=== PATIENT | female | born 1985 | race Caucasian/White ===

== ENCOUNTER 2021-04-29 18:27 | Emergency (ER) | payer SELFPAY ==
[2021-04-29 18:47] VITALS: BP 120/75; PULSE 76; TEMP 97; BMI 26.9
[2021-04-29 20:58] LABS: BASO % 0.4 % (0-2.0); EOS % 0.4 % (0-4.5); HEMATOCRIT 36.6 % (32.4-45.2); HEMOGLOBIN 12.4 GM/dL (10.7-15.3); LYMPH % 15.6 % (8-40); MCH 29.4 pg (25.7-33.7); MCHC 33.9 g/dl (32.0-36.0); MEAN CELL VOLUME 86.6 fl (80-96); MEAN PLT VOLUME 9.5 fl (7.5-11.1); MONO % 4.8 % (3.8-10.2); NEUT % 78.8 % (42.8-82.8); PLATELET COUNT 172 10^3/uL (134-434); RBC 4.22 M/mm3 (3.60-5.2); WHITE BLOOD COUNT 12.3 K/mm3 (4.0-10.0)
[2021-04-29 21:02] LABS: HCG,QUALITATIVE URINE Positive
[2021-04-29 21:06] LABS: EPI CELLS 4 /uL (0-25.1); HYALINE CASTS 1 /uL (0-3.1); PH,URINE 5.5 (5.0-8.0); URINE APPEARANCE TURBID; URINE BACTERIA 185 /uL (0-1359); URINE BILIRUBIN NEGATIVE (NEGATIVE); URINE COLOR YELLOW; URINE GLUCOSE (UA) NEGATIVE (NEGATIVE); URINE KETONE NEGATIVE (NEGATIVE); URINE LEUK ESTERASE 3+ (NEGATIVE); URINE NITRITE NEGATIVE (NEGATIVE); URINE PROTEIN 2+ (NEGATIVE); URINE RBC 1693 /uL (0-23.9); URINE UROBILINOGEN 0.2 mg/dL (0.2-1.0); URINE WBC 3994 /uL (0-25.8)
[2021-04-29 21:18] LABS: ALBUMIN 4.5 g/dl (3.4-5.0); BLOOD UREA NITROGEN 9.6 mg/dL (7-18)
[2021-04-29 21:21] LABS: CREATININE 0.8 mg/dL (0.55-1.3)
[2021-04-29 21:23] LABS: BILIRUBIN,TOTAL 0.2 mg/dL (0.2-1); TOT PROT 7.8 g/dl (6.4-8.2)
[2021-04-29] MEDS ORDERED: CEFTRIAXONE 1,000 MG in DEXTROSE 5%-WATER - 50 ML IVPB ONE (22:23)
[2021-04-29] MEDS ORDERED: CEFTRIAXONE 1 GM/50 ML BAG ONE (22:31)
[2021-04-29] MEDS ORDERED: ACETAMINOPHEN 325 MG TABLET (FP) ONE (22:39)
[2021-04-29] MEDS ORDERED: ACETAMINOPHEN 325 MG TABLET (FP) PO ONE (22:40)
== END 2021-04-29 23:03 | disposition home or self-care (01) ==
LOC: JER 18:27
DX: O46.91 Antepartum hemorrhage, unspecified, first trimester (principal); O23.01 Infections of kidney in pregnancy, first trimester; O23.41 Unspecified infection of urinary tract in pregnancy, first trimester; Z3A.01 Less than 8 weeks gestation of pregnancy
CPT/HCPCS: 36415; 76817-TC; 80053; 81003; 84702; 84703; 85025; 86850; 86900; 86901; 99284-25

== ENCOUNTER 2021-05-21 16:56 | Emergency (ER) | payer OTHER ==
[2021-05-21 17:10] VITALS: BP 122/80; PULSE 72; TEMP 98.3; BMI 26.9
[2021-05-21 18:23] LABS: BASO % 0.6 % (0-2.0); EOS % 0.8 % (0-4.5); HEMATOCRIT 34.5 % (32.4-45.2); HEMOGLOBIN 11.9 GM/dL (10.7-15.3); LYMPH % 25.8 % (8-40); MCH 29.7 pg (25.7-33.7); MCHC 34.4 g/dl (32.0-36.0); MEAN CELL VOLUME 86.5 fl (80-96); MEAN PLT VOLUME 10.2 fl (7.5-11.1); MONO % 7.5 % (3.8-10.2); NEUT % 65.3 % (42.8-82.8); PLATELET COUNT 176 10^3/uL (134-434); RBC 3.99 M/mm3 (3.60-5.2); RDW 14.4 % (11.6-15.6); WHITE BLOOD COUNT 9.2 K/mm3 (4.0-10.0)
[2021-05-21 18:33] LABS: CALCIUM 9.4 mg/dL (8.5-10.1)
[2021-05-21 18:36] LABS: CREATININE 0.9 mg/dL (0.55-1.3)
[2021-05-21 18:47] LABS: EPI CELLS 21 /uL (0-25.1); HYALINE CASTS 0 /uL (0-3.1); PH,URINE 6.5 (5.0-8.0); URINE APPEARANCE CLEAR; URINE BACTERIA 414 /uL (0-1359); URINE BILIRUBIN NEGATIVE (NEGATIVE); URINE COLOR YELLOW; URINE GLUCOSE (UA) NEGATIVE (NEGATIVE); URINE KETONE NEGATIVE (NEGATIVE); URINE LEUK ESTERASE 2+ (NEGATIVE); URINE NITRITE NEGATIVE (NEGATIVE); URINE PROTEIN NEGATIVE (NEGATIVE); URINE RBC 13 /uL (0-23.9); URINE UROBILINOGEN 0.2 mg/dL (0.2-1.0); URINE WBC 135 /uL (0-25.8)
== END 2021-05-21 19:40 | disposition home or self-care (01) ==
LOC: JER 16:56
DX: O20.9 Hemorrhage in early pregnancy, unspecified (principal); O23.41 Unspecified infection of urinary tract in pregnancy, first trimester; Z3A.08 8 weeks gestation of pregnancy
CPT/HCPCS: 36415; 76801-TC; 80048; 81003; 84702; 85025; 86850; 86900; 86901; 87086; 99284-25

== ENCOUNTER 2021-05-24 19:06 | Emergency (ER) | payer OTHER ==
[2021-05-24 19:37] VITALS: BP 105/69; PULSE 72; TEMP 98.7; BMI 26.4
== END 2021-05-24 23:07 | disposition home or self-care (01) ==
LOC: JER 19:06
DX: O20.9 Hemorrhage in early pregnancy, unspecified (principal); Z3A.08 8 weeks gestation of pregnancy
CPT/HCPCS: 36415; 76801-TC; 84702; 99284-25

== ENCOUNTER 2021-06-06 09:43 | Emergency (ER) | payer OTHER ==
[2021-06-06 10:00] VITALS: TEMP 98.3; BMI 26.9
[2021-06-06 11:09] LABS: EPI CELLS 1 /uL (0-25.1); HYALINE CASTS 5 /uL (0-3.1); URINE APPEARANCE TURBID; URINE BILIRUBIN 2+ (NEGATIVE); URINE COLOR RED; URINE GLUCOSE (UA) NEGATIVE (NEGATIVE); URINE KETONE NEGATIVE (NEGATIVE); URINE LEUK ESTERASE 2+ (NEGATIVE); URINE NITRITE POSITIVE (NEGATIVE); URINE PROTEIN 2+ (NEGATIVE); URINE RBC 7547 /uL (0-23.9); URINE UROBILINOGEN 0.2 mg/dL (0.2-1.0); URINE WBC 2 /uL (0-25.8)
[2021-06-06] MEDS ORDERED: NITROFURANTOIN MACROCRYSTAL 50 MG CAPSULE (FP) PO ONE (11:15)
[2021-06-06] MEDS ORDERED: NITROFURANTOIN MACROCRYSTAL 50 MG CAPSULE (FP) ONE (11:55)
[2021-06-06 12:29] LABS: URINE BACTERIA 2.7 /uL (0-1359)
[2021-06-06] MEDS ORDERED: ACETAMINOPHEN 500 MG TABLET (FP) PO ONE (13:42)
[2021-06-06] MEDS ORDERED: ACETAMINOPHEN 500 MG TABLET (FP) ONE (13:55)
[2021-06-06 14:12] VITALS: BP 145/69; PULSE 74
== END 2021-06-06 14:10 | disposition home or self-care (01) ==
LOC: JER 09:43
DX: O03.9 Complete or unspecified spontaneous abortion without complication (principal); N39.0 Urinary tract infection, site not specified
CPT/HCPCS: 36415; 76801-TC; 81003; 84702; 87086; 99284-25

== ENCOUNTER 2021-10-01 16:43 | Emergency (ER) | payer OTHER ==
[2021-10-01 17:12] VITALS: BP 113/73; PULSE 80; TEMP 97.8; BMI 26.2
[2021-10-01] MEDS ORDERED: ACETAMINOPHEN 325 MG TABLET (FP) PO ONE (20:34)
[2021-10-01 20:39] LABS: BASO % 0.4 % (0-2.0); EOS % 0.1 % (0-4.5); HEMATOCRIT 34.6 % (32.4-45.2); HEMOGLOBIN 11.3 GM/dL (10.7-15.3); LYMPH % 13.8 % (8-40); MCH 27.3 pg (25.7-33.7); MCHC 32.8 g/dl (32.0-36.0); MEAN CELL VOLUME 83.1 fl (80-96); MEAN PLT VOLUME 9.7 fl (7.5-11.1); MONO % 3.4 % (3.8-10.2); NEUT % 82.3 % (42.8-82.8); PLATELET COUNT 177 10^3/uL (134-434); RBC 4.16 M/mm3 (3.60-5.2); RDW 17.5 % (11.6-15.6); WHITE BLOOD COUNT 10.1 K/mm3 (4.0-10.0)
[2021-10-01] MEDS ORDERED: ACETAMINOPHEN 325 MG TABLET (FP) ONE (21:06)
[2021-10-01 21:09] LABS: BLOOD UREA NITROGEN 11.1 mg/dL (7-18); CALCIUM 8.9 mg/dL (8.5-10.1)
[2021-10-01 21:10] LABS: ALBUMIN 4.2 g/dl (3.4-5.0)
[2021-10-01 21:12] LABS: CREATININE 0.7 mg/dL (0.55-1.3)
[2021-10-01 21:14] LABS: BILIRUBIN,TOTAL 0.5 mg/dL (0.2-1); TOT PROT 7.5 g/dl (6.4-8.2)
== END 2021-10-01 22:32 | disposition home or self-care (01) ==
LOC: JER 16:43
DX: O03.9 Complete or unspecified spontaneous abortion without complication (principal)
CPT/HCPCS: 36415; 76817-TC; 80053; 84702; 85025; 86850; 86900; 86901; 99284-25

== ENCOUNTER 2022-12-28 09:14 | Emergency (ER) | payer OTHER ==
[2022-12-28 09:24] VITALS: BP 131/85; PULSE 84; RESP 18; TEMP 97.9; BMI 23.3
[2022-12-28] MEDS ORDERED: ALBUTEROL SO4 2.5/IPRATROPIUM 0.5 INH SOL 3 ML VIAL.NEB. NEB ONE ×2 (09:45→09:54)
[2022-12-28] MEDS ORDERED: guaiFENesin 200 MG/10 ML 10 ML UNIT-DOSE CUPS PO ONE (09:46)
[2022-12-28] MEDS ORDERED: predniSONE 20 MG TABLET (UD) PO ONE (09:46)
[2022-12-28] MEDS ORDERED: ACETAMINOPHEN 325 MG TABLET (FP) PO ONE (09:46)
[2022-12-28] MEDS ORDERED: guaiFENesin/D-METHORPHAN HB 10 ML UNIT-DOSE CUPS ONE (09:53)
[2022-12-28] MEDS ORDERED: predniSONE 20 MG TABLET (UD) ONE (09:54)
[2022-12-28] MEDS ORDERED: ACETAMINOPHEN 325 MG TABLET (FP) ONE (09:54)
== END 2022-12-28 12:23 | disposition home or self-care (01) ==
LOC: JERFT 09:14
PROC: 3E0F7GC Introduction of Other Therapeutic Substance into Respiratory Tract, Via Natural or Artificial Opening (ICD-10-PCS; principal; 2022-12-28)
DX: J45.901 Unspecified asthma with (acute) exacerbation (principal); R05.1 Acute cough; R50.9 Fever, unspecified; M79.10 Myalgia, unspecified site; R09.3 Abnormal sputum; R07.89 Other chest pain; R09.89 Other specified symptoms and signs involving the circulatory and respiratory systems; R51.9 Headache, unspecified; R06.02 Shortness of breath; Z20.822 Contact with and (suspected) exposure to COVID-19
CPT/HCPCS: 0241U-QW; 71046-TC-FY; 93005; 93010; 99285-25

== ENCOUNTER 2023-01-07 00:06 | Observation (INO) | payer OTHER ==
[2023-01-07 00:13] VITALS: RESP 18
[2023-01-07] MEDS ORDERED: MAG HYDROX/AL HYDROX/SIMETH 30 ML UNIT-DOSE CUP PO ONE (01:06)
[2023-01-07] MEDS ORDERED: ONDANSETRON 4 MG/2 ML VIAL IVPUSH ONE (01:06)
[2023-01-07] MEDS ORDERED: FAMOTIDINE 20 MG/50 ML IVPB 20 MG/50 ML MG IVPB ONE ×2 (01:06→01:41)
[2023-01-07] MEDS ORDERED: ACETAMINOPHEN 1000 MG/100 ML BAG IVPB ONE (01:29)
[2023-01-07] MEDS ORDERED: ACETAMINOPHEN INJECTION 100 ML IVPB ONE (01:41)
[2023-01-07] MEDS ORDERED: MAG HYDROX/AL HYDROX/SIMETH 30 ML UNIT-DOSE CUP ONE (01:41)
[2023-01-07 01:53] LABS: BASO % 0.5 % (0-2.0); EOS % 1.4 % (0-4.5); HEMATOCRIT 36.2 % (32.4-45.2); HEMOGLOBIN 12.6 GM/dL (10.7-15.3); LYMPH % 18.6 % (8-40); MCH 29.1 pg (25.7-33.7); MEAN CELL VOLUME 83.3 fl (80-96); MEAN PLT VOLUME 9.8 fl (7.5-11.1); MONO % 7.4 % (3.8-10.2); NEUT % 72.1 % (42.8-82.8); PLATELET COUNT 198 10^3/uL (134-434); RBC 4.35 M/mm3 (3.60-5.2); RDW 15.1 % (11.6-15.6); WHITE BLOOD COUNT 7.5 K/mm3 (4.0-10.0)
[2023-01-07 02:09] LABS: ALBUMIN 4.2 g/dl (3.4-5.0); BLOOD UREA NITROGEN 12.4 mg/dL (7-18); CALCIUM 9.1 mg/dL (8.5-10.1)
[2023-01-07 02:12] LABS: CREATININE 0.8 mg/dL (0.55-1.3)
[2023-01-07 02:14] LABS: BILIRUBIN,TOTAL 0.6 mg/dL (0.2-1); TOT PROT 7.4 g/dl (6.4-8.2)
[2023-01-07 03:38] LABS: EPI CELLS 3 /uL (0-25.1); HYALINE CASTS 0 /uL (0-3.1); PH,URINE 6.5 (5.0-8.0); URINE APPEARANCE CLEAR; URINE BACTERIA >9,000 /uL (0-1359); URINE BILIRUBIN NEGATIVE (NEGATIVE); URINE COLOR YELLOW; URINE GLUCOSE (UA) NEGATIVE (NEGATIVE); URINE KETONE NEGATIVE (NEGATIVE); URINE LEUK ESTERASE NEGATIVE (NEGATIVE); URINE NITRITE POSITIVE (NEGATIVE); URINE PROTEIN NEGATIVE (NEGATIVE); URINE RBC 2 /uL (0-23.9); URINE WBC 3 /uL (0-25.8)
[2023-01-07] MEDS ORDERED: morphine CARPU-JECT 4 MG/1 ML DISP.SYRIN IVPUSH ONE (03:54)
[2023-01-07] MEDS ORDERED: morphine SULFATE 4 MG/ML VIAL ONE (04:49)
[2023-01-07] MEDS ORDERED: LACTATED RINGERS SOLUTION 1,000 ML/1,000 ML INFUS.BAG IV SCH (06:15)
[2023-01-07] MEDS ORDERED: ONDANSETRON 4 MG/2 ML VIAL IVPUSH PRN (07:38)
[2023-01-07 08:18] LABS: BASO % 0.5 % (0-2.0); EOS % 0.6 % (0-4.5); HEMATOCRIT 33.4 % (32.4-45.2); HEMOGLOBIN 11.6 GM/dL (10.7-15.3); LYMPH % 26.2 % (8-40); MCHC 34.7 g/dl (32.0-36.0); MEAN CELL VOLUME 83.5 fl (80-96); MEAN PLT VOLUME 9.4 fl (7.5-11.1); MONO % 9.4 % (3.8-10.2); NEUT % 63.3 % (42.8-82.8); PLATELET COUNT 182 10^3/uL (134-434); RBC 4.01 M/mm3 (3.60-5.2); RDW 15.2 % (11.6-15.6); WHITE BLOOD COUNT 5.4 K/mm3 (4.0-10.0)
[2023-01-07 08:22] LABS: INR 1.07 (0.83-1.09); PROTHROMBIN TIME (PATIENT) 12.4 SEC (9.7-13.0)
[2023-01-07 08:25] LABS: ACTIVATED PTT 28.9 SECONDS (25.2-36.5)
[2023-01-07 08:37] LABS: CALCIUM 8.4 mg/dL (8.5-10.1)
[2023-01-07 08:38] LABS: ALBUMIN 3.7 g/dl (3.4-5.0); BLOOD UREA NITROGEN 9.5 mg/dL (7-18); MAGNESIUM 2.3 mg/dL (1.8-2.4)
[2023-01-07 08:41] LABS: CREATININE 0.7 mg/dL (0.55-1.3); PHOSPHOROUS 2.5 mg/dL (2.5-4.9)
[2023-01-07 08:42] LABS: BILIRUBIN,TOTAL 0.4 mg/dL (0.2-1)
[2023-01-07 08:43] LABS: TOT PROT 6.6 g/dl (6.4-8.2)
[2023-01-07] MEDS ORDERED: CEFTRIAXONE 1 GM in DEXTROSE 5%-WATER - 50 ML IVPB SCH (10:00)
[2023-01-07] MEDS ORDERED: ENOXAPARIN NA (PORCINE) 40 MG/0.4 ML DISP.SYRIN SQ SCH (10:00)
[2023-01-07 10:58] VITALS: BMI 21.9
[2023-01-07 19:12] VITALS: BP 122/74; PULSE 64; TEMP 98.6
== END 2023-01-07 19:30 | disposition short-term general hospital (02) ==
LOC: JER 00:06 → JERBED 04:24 → J5S 07:53
PROVIDERS: ADMIT Internal Medicine; ATTEND Internal Medicine
PROC: 3E033GC Introduction of Other Therapeutic Substance into Peripheral Vein, Percutaneous Approach (ICD-10-PCS; principal; 2023-01-07)
PROC: 3E023GC Introduction of Other Therapeutic Substance into Muscle, Percutaneous Approach (ICD-10-PCS; 2023-01-07)
PROC: 3E033NZ Introduction of Analgesics, Hypnotics, Sedatives into Peripheral Vein, Percutaneous Approach (ICD-10-PCS; 2023-01-07)
PROC: 3E0337Z Introduction of Electrolytic and Water Balance Substance into Peripheral Vein, Percutaneous Approach (ICD-10-PCS; 2023-01-07)
DX: R10.13 Epigastric pain (principal); R30.0 Dysuria; R20.8 Other disturbances of skin sensation; J45.909 Unspecified asthma, uncomplicated; G43.909 Migraine, unspecified, not intractable, without status migrainosus
CPT/HCPCS: 0241U-QW; 36415; 76705-TC; 80053; 81003; 83690; 83735; 84100; 84703; 85025; 85610; 85730; 86704; 86709; 86803; 87086; 87186; 87340; 87517; 93005; 93010; 96361; 96365; 96367; 96375; 99285-25; G0378

== ENCOUNTER 2023-01-17 04:26 | Day surgery (SDC) | payer OTHER ==
[2023-01-14 09:56] VITALS: BMI 23.3
[2023-01-17] MEDS ORDERED: BUPIVACAINE HCL/PF 0.5% (5MG/ML) 10 ML VIAL ONE (12:22)
[2023-01-17] MEDS ORDERED: BUPIVACAINE HCL/PF 0.25% (2.5MG/ML) 10 ML VIAL ONE (12:22)
[2023-01-17] MEDS ORDERED: LIDOCAINE HCL/PF 2% SDV 5ML VIAL ONE (12:54)
[2023-01-17] MEDS ORDERED: PROPOFOL 20 ML ONE (12:54)
[2023-01-17] MEDS ORDERED: SUCCINYLCHOLINE CHLORIDE 200 MG/10 ML SYRINGE ONE (12:54)
[2023-01-17] MEDS ORDERED: ROCURONIUM BROMIDE 50 MG/5 ML SYRINGE ONE (12:55)
[2023-01-17] MEDS ORDERED: MIDAZOLAM HCL 2 MG/2 ML SINGLE DOSE VIAL ONE (12:55)
[2023-01-17] MEDS ORDERED: DEXAMETHASONE SOD PHOSPHATE 4 MG/1 ML VIAL ONE (13:12)
[2023-01-17] MEDS ORDERED: ceFAZolin SODIUM 1 GM VIAL ONE (13:12)
[2023-01-17] MEDS ORDERED: HEPARIN NA (PORCINE) 5,000 UNITS/ML 1ML VIAL ONE (13:14)
[2023-01-17] MEDS ORDERED: ceFAZolin SODIUM 1 GM VIAL IVPB ONE (13:15)
[2023-01-17] MEDS ORDERED: BUPIVACAINE HCL/PF 0.25% (2.5MG/ML) 10 ML VIAL IJ ONE (13:28)
[2023-01-17] MEDS ORDERED: KETOROLAC TROMETHAMINE 30 MG/1 ML VIAL ONE (13:46)
[2023-01-17] MEDS ORDERED: ONDANSETRON 4 MG/2 ML VIAL ONE (13:46)
[2023-01-17] MEDS ORDERED: ACETAMINOPHEN 1000 MG/100 ML BAG IVPB ONE ×2 (14:06→14:10)
[2023-01-17] MEDS ORDERED: PROMETHAZINE HCL 25 MG/1 ML VIAL IVPB PRN (14:06)
[2023-01-17] MEDS ORDERED: ONDANSETRON 4 MG/2 ML VIAL IVPUSH PRN (14:06)
[2023-01-17] MEDS ORDERED: oxyCODONE HCL 5 MG TABLET PO PRN ×2 (14:06)
[2023-01-17] MEDS ORDERED: LACTATED RINGERS SOLUTION 1,000 ML IV SCH (14:15)
[2023-01-17 16:51] VITALS: RESP 16
[2023-01-17] MEDS ORDERED: oxyCODONE HCL 5 MG TABLET ONE (16:53)
[2023-01-17 18:27] VITALS: BP 121/78; PULSE 66; TEMP 98
== END 2023-01-17 18:35 | disposition home or self-care (01) ==
LOC: JASU-SURG 04:26
PROVIDERS: ATTEND Surgery
PROC: 0FT44ZZ Resection of Gallbladder, Percutaneous Endoscopic Approach (ICD-10-PCS; principal; 2023-01-17 10:00)
DX: K80.50 Calculus of bile duct without cholangitis or cholecystitis without obstruction (principal)
CPT/HCPCS: 81025; 88304-TC; 94760; J1644

== ENCOUNTER 2023-03-30 19:13 | Emergency (ER) | payer OTHER ==
[2023-03-30 19:16] VITALS: BP 132/86; PULSE 68; RESP 18; TEMP 98.9; BMI 22.8
[2023-03-30] MEDS ORDERED: FLUORESCEIN NA 1 EA STRIP OD ONE (20:02)
[2023-03-30] MEDS ORDERED: TETRACAINE 0.5% OPHTH SOLN 2 ML BOTTLE ONE (20:02)
[2023-03-30] MEDS ORDERED: TETRACAINE 0.5% HCL 0.6ML DROPPER.BOTTLE OD STA (20:02)
[2023-03-30] MEDS ORDERED: FLUORESCEIN NA 1 EA STRIP ONE (20:02)
== END 2023-03-30 20:13 | disposition home or self-care (01) ==
LOC: JERFT 19:13
DX: H53.8 Other visual disturbances (principal); S05.01XA Injury of conjunctiva and corneal abrasion without foreign body, right eye, initial encounter; X58.XXXA Exposure to other specified factors, initial encounter
CPT/HCPCS: 99283-25

== ENCOUNTER 2023-04-04 14:52 | Emergency (ER) | payer OTHER ==
[2023-04-04 15:04] VITALS: BP 125/77; TEMP 99.4; BMI 21.1
[2023-04-04] MEDS ORDERED: IBUPROFEN 600 MG TABLET (FP) PO ONE ×2 (16:56→17:02)
[2023-04-04 18:04] VITALS: PULSE 92; RESP 18
[2023-04-04 18:05] LABS: THROAT:GRP A STREP NOT DETECTED (NOTDETECTED)
== END 2023-04-04 18:04 | disposition home or self-care (01) ==
LOC: JERFT 14:52
DX: R50.9 Fever, unspecified (principal); M79.10 Myalgia, unspecified site; R05.9 Cough, unspecified; R07.0 Pain in throat; R11.0 Nausea; U07.1 COVID-19
CPT/HCPCS: 0241U-QW; 71046-TC-FY; 87651

== ENCOUNTER 2024-10-29 12:36 | Emergency (ER) | payer OTHER ==
[2024-10-29 12:53] VITALS: RESP 17; BMI 21.7
[2024-10-29] MEDS: SODIUM CHLORIDE 0.9% 500 ML INFUS.BAG IV ONE (14:30)
[2024-10-29] MEDS: METOCLOPRAMIDE HCL INJECTION 10 MG/2 ML VIAL IVPB ONE (14:45)
[2024-10-29] MEDS: ACETAMINOPHEN 500 MG TABLET (FP) PO ONE (14:55)
[2024-10-29] MEDS ORDERED: ACETAMINOPHEN 325 MG TABLET (FP) ONE (15:12)
[2024-10-29] MEDS ORDERED: METOCLOPRAMIDE HCL INJECTION 10 MG/2 ML VIAL ONE (15:12)
[2024-10-29 15:35] LABS: BASO % 0.3 % (0-2.0); HEMATOCRIT 38.6 % (32.4-45.2); HEMOGLOBIN 12.7 GM/dL (10.7-15.3); LYMPH % 25.5 % (8-40); MCH 28.9 pg (25.7-33.7); MCHC 32.9 g/dl (32.0-36.0); MEAN CELL VOLUME 87.8 fl (80-96); MEAN PLT VOLUME 9.3 fl (7.5-11.1); NEUT % 68.2 % (42.8-82.8); PLATELET COUNT 189 10^3/uL (134-434); RDW 13.5 % (11.6-15.6); WHITE BLOOD COUNT 8.3 K/mm3 (4.0-10.0)
[2024-10-29 15:42] LABS: INR 1.03 (0.83-1.09); PROTHROMBIN TIME (PATIENT) 11.2 SEC (9.7-13.0)
[2024-10-29 15:45] LABS: ACTIVATED PTT 33.3 SECONDS (25.2-36.5)
[2024-10-29 15:56] LABS: POTASSIUM 3.9 mmol/L (3.5-5.1)
[2024-10-29 15:58] LABS: BLOOD UREA NITROGEN 8.4 mg/dL (7-18); CALCIUM 9.6 mg/dL (8.5-10.1); MAGNESIUM 2.2 mg/dL (1.8-2.4)
[2024-10-29 15:59] LABS: ALBUMIN 4.2 g/dl (3.4-5.0)
[2024-10-29 16:02] LABS: CREATININE 0.8 mg/dL (0.55-1.3)
[2024-10-29 16:03] LABS: BILIRUBIN,TOTAL 0.3 mg/dL (0.2-1); TOT PROT 7.4 g/dl (6.4-8.2)
[2024-10-29 16:38] VITALS: BP 98/64; PULSE 65; TEMP 97.9
[2024-10-29 16:53] LABS: HCV DIAGNOSTIC IN-HOUSE W/RFLX NON-REACTIVE (NONREACTIVE)
[2024-10-29 17:22] LABS: HIV INTERPRETATION NEGATIVE (NEGATIVE)
== END 2024-10-29 16:49 | disposition home or self-care (01) ==
LOC: JER 12:36
PROC: 3E033GC Introduction of Other Therapeutic Substance into Peripheral Vein, Percutaneous Approach (ICD-10-PCS; principal; 2024-10-29)
DX: R51.9 Headache, unspecified (principal); R07.9 Chest pain, unspecified; R11.0 Nausea; R42 Dizziness and giddiness; R19.7 Diarrhea, unspecified; Z20.822 Contact with and (suspected) exposure to COVID-19
CPT/HCPCS: 0241U-QW; 36415; 71045-TC-FY; 80053; 83735; 84484; 84703; 85025; 85610; 85730; 86803; 87389; 93005; 93010; 96374; 99285-25

== ENCOUNTER 2025-02-20 20:55 | Emergency (ER) | payer OTHER ==
[2025-02-20 21:01] VITALS: BP 135/78; PULSE 89; RESP 20; TEMP 97.9; BMI 29.4
[2025-02-20] MEDS ORDERED: ACETAMINOPHEN 325 MG TABLET (FP) PO ONE (21:41)
[2025-02-20] MEDS ORDERED: ONDANSETRON *ODT* 4 MG TABLET SL ONE (21:42)
[2025-02-20] MEDS ORDERED: FAMOTIDINE 20 MG/50 ML IVPB 20 MG/50 ML MG IVPB ONE (21:53)
[2025-02-20] MEDS ORDERED: ONDANSETRON 4 MG/2 ML VIAL ONE (21:53)
[2025-02-20] MEDS ORDERED: MAG HYDROX/AL HYDROX/SIMETH 30 ML UNIT-DOSE CUP ONE (21:53)
[2025-02-20 22:14] LABS: HCG,QUALITATIVE URINE Negative; URINE APPEARANCE CLOUDY; URINE BILIRUBIN NEGATIVE (NEGATIVE); URINE COLOR YELLOW; URINE GLUCOSE (UA) NEGATIVE (NEGATIVE); URINE KETONE NEGATIVE (NEGATIVE); URINE LEUK ESTERASE 2+ (NEGATIVE); URINE NITRITE NEGATIVE (NEGATIVE); URINE PROTEIN NEGATIVE (NEGATIVE); URINE UROBILINOGEN 0.2 mg/dL (0.2-1.0)
[2025-02-20] MEDS: MAG HYDROX/AL HYDROX/SIMETH -MYLANTA- ORAL SUSPENSION PO ONE (22:15)
[2025-02-20] MEDS: FAMOTIDINE 20 MG/50 ML IVPB 20 MG in PREMIX 50 IVPB ONE (22:15)
[2025-02-20] MEDS: ONDANSETRON 4 MG/2 ML VIAL IVPUSH ONE (22:15)
[2025-02-20] MEDS ORDERED: SIMETHICONE 80 MG TAB.CHEW (FP) ONE (22:16)
[2025-02-20 22:17] LABS: ABSOLUTE IMMATURE GRANULOCYTES 0.01 x10^3/uL (0.0-0.031); BASOPHILS # 0.02 x10^3/uL (0.01-0.08); EOSINOPHIL % 0.9 % (0.7-5.8); EOSINOPHILS # 0.07 x10^3/uL (0.04-0.36); HEMATOCRIT 35.1 % (34.1-44.9); HEMOGLOBIN 11.9 g/dL (11.2-15.7); MCHC 33.9 g/dl (32.2-35.5); MEAN CELL VOLUME 87.5 fl (79.4-94.8); MEAN PLT VOLUME 11.3 fl (9.4-12.3); MONOCYTE # 0.61 x10^3/uL (0.24-0.86); MONOCYTE % 7.7 % (4.7-12.5); PLATELET COUNT 176 x10^3/uL (182-369); RDW 12.7 % (12.1-16.8)
[2025-02-20] MEDS: SIMETHICONE 80 MG TAB.CHEW (FP) PO ONE (22:19)
[2025-02-20] MEDS ORDERED: ACETAMINOPHEN INJECTION 100 ML ONE (22:20)
[2025-02-20] MEDS: ACETAMINOPHEN 1000 MG/100 ML BAG IVPB ONE (22:27)
[2025-02-20 22:42] LABS: POTASSIUM 3.8 mmol/L (3.5-5.1)
[2025-02-20 22:43] LABS: ALBUMIN 4.1 g/dl (3.4-5.0); CALCIUM 9.8 mg/dL (8.5-10.1)
[2025-02-20 22:44] LABS: BLOOD UREA NITROGEN 12.7 mg/dL (7-18); MAGNESIUM 2.1 mg/dL (1.8-2.4)
[2025-02-20 22:47] LABS: CREATININE 0.9 mg/dL (0.55-1.3)
[2025-02-20 22:49] LABS: BILIRUBIN,TOTAL 0.4 mg/dL (0.2-1); TOT PROT 7.1 g/dl (6.4-8.2)
[2025-02-20 23:02] LABS: EPI CELLS 59.3 /uL (0-25.1); HYALINE CASTS 1.38 /uL (0-3.1); URINE BACTERIA 1240.3 /uL (0-1359); URINE RBC 29.7 /uL (0-23.9); URINE WBC 48.6 /uL (0-25.8)
[2025-02-20] MEDS: CEPHALEXIN MONOHYDRATE 500 MG CAPSULE (UD) PO ONE (23:31)
== END 2025-02-20 23:32 | disposition home or self-care (01) ==
LOC: JER 20:55
PROC: 3E033GC Introduction of Other Therapeutic Substance into Peripheral Vein, Percutaneous Approach (ICD-10-PCS; principal; 2025-02-20)
PROC: 3E033GC Introduction of Other Therapeutic Substance into Peripheral Vein, Percutaneous Approach (ICD-10-PCS; 2025-02-20)
PROC: 3E033NZ Introduction of Analgesics, Hypnotics, Sedatives into Peripheral Vein, Percutaneous Approach (ICD-10-PCS; 2025-02-20)
DX: N39.0 Urinary tract infection, site not specified (principal); R10.13 Epigastric pain; R11.0 Nausea
CPT/HCPCS: 36415; 80053; 81003; 83690; 83735; 84703; 85025; 99284-25